=== PATIENT | female | born 1985 | race Two or more races ===

== ENCOUNTER 2025-03-16 06:40 | Inpatient (IN) | payer OTHER ==
[~2025-03-16] VITALS: Ht 162.6 cm; Wt 88.5 kg
[2025-03-16 06:11] VITALS: BP 101/75; O2SAT 97
[2025-03-16] MEDS ORDERED: CHILDREN'S ASPI81 MG PO (06:43)
[2025-03-16] MEDS ORDERED: PRENATA CHEWAB1 EACH PO (06:43)
[2025-03-16] MEDS ORDERED: CHOLINE500 M1 PO (06:44)
[2025-03-16] MEDS ORDERED: RINGERS SOLUTION,LACTATED 1,000 ML IV SCH ×2 (07:00→11:00)
[2025-03-16] MEDS ORDERED: CEFAZOLIN SODIUM 1,000 MG VIAL IV SCH (07:00)
[2025-03-16 07:11] VITALS: BP 109/71
[2025-03-16 07:37] LABS: BASO % 0.4 % (0.1-1.2); EOS # 0.09 (0.04-0.54); EOS % 1.3 % (0.7-7.0); LYMPH # 1.91 (1.18-3.74); LYMPH % 27.1 % (19.3-53.1); MEAN PLATELET VOLUME 11.00 fl (9.4-12.4); MONO # 0.37 (0.24-0.82); MONO % 5.2 % (4.7-12.5); NEUT # 4.61 (1.56-6.13); NEUT % 65.4 % (34.0-71.1); RED CELL DISTRIBUTION WIDTH 12.9 % (11.6-14.4)
[2025-03-16 07:41] LABS: URINE APPEARANCE Cloudy; URINE BILIRRUBIN Negative (NEGATIVE); URINE BLOOD Negative; URINE COLOR Yellow; URINE GLUCOSE Negative (NEGATIVE); URINE KETONE Negative (NEGATIVE); URINE LEUKOCYTE Large; URINE NITRATE Negative; URINE PROTEIN Trace (NEGATIVE); URINE UROBILINOGEN 0.2 E.U./dl
[2025-03-16 07:45] LABS: URINE RBC 9.9 uL (0.0-20.8); URINE WBC 85.3 uL (0.0-23.2)
[2025-03-16 07:53] LABS: URINE CAST 0.43 uL (0.0-1.40); URINE EPITHELIAL CELLS > 201.7 uL (0.0-38.8)
[2025-03-16 07:56] LABS: TYPE CELLS SQUAMOUS
[2025-03-16 08:04] LABS: INR < 0.93
[2025-03-16 08:08] LABS: ALT/SGPT 18.0 U/L (12-78); AST/SGOT 14.0 U/L (15-37); BILIRUBIN TOTAL 0.4 mg/dL (0.3-1.2); BUN CREA RATIO 20.0 (7.0-25.0); CREATININE SERUM 0.41 mg/dL (0.55-1.02); GFR 173.61; GLOBULINA 3.2 G/DL (2.4-3.5); GLUCOSE FASTING 84.0 mg/dL (65-100); OSMOLALITY SERUM 277.0 MOSM/KG (275-295)
[2025-03-16] MEDS ORDERED: MORPHINE SULFATE 4 MG/ML VIAL IV SCH (10:50)
[2025-03-16] MEDS ORDERED: CHLORHEXIDINE GLUCONATE 120 ML BOTTLE TP NR (11:00)
[2025-03-16] MEDS ORDERED: ACETAMINOPHEN WITH CODEINE 1 UDTAB TABLET PO PRN (11:00)
[2025-03-16] MEDS ORDERED: OXYTOCIN 1,000 ML IV SCH (11:00)
[2025-03-16] MEDS ORDERED: ERYTHROMYCIN BASE OPHT 1GM EACH TUBE OP ONE (11:00)
[2025-03-16] MEDS ORDERED: PROMETHAZINE HCL 50 MG/ML AMPUL IV SCH (12:00)
[2025-03-16] MEDS ORDERED: SIMETHICONE 125 MG CAPSULE PO SCH (13:00)
[2025-03-16 13:41] LABS: BASO % 0.3 % (0.1-1.2); EOS # 0.07 (0.04-0.54); EOS % 0.7 % (0.7-7.0); LYMPH # 1.42 (1.18-3.74); LYMPH % 13.8 % (19.3-53.1); MEAN PLATELET VOLUME 10.60 fl (9.4-12.4); MONO # 0.42 (0.24-0.82); MONO % 4.1 % (4.7-12.5); NEUT # 8.32 (1.56-6.13); NEUT % 80.5 % (34.0-71.1); RED CELL DISTRIBUTION WIDTH 12.5 % (11.6-14.4)
[2025-03-16 13:45] VITALS: BP 110/73
[2025-03-16 16:00] VITALS: BP 107/71
[2025-03-16 20:00] VITALS: BP 110/70
[2025-03-17 00:20] VITALS: BP 104/64
[2025-03-17 08:12] VITALS: BP 114/75
[2025-03-17] MEDS ORDERED: NAPROXEN 500 MG TABLET PO SCH (09:00)
[2025-03-17 16:34] VITALS: BP 120/77
[2025-03-18 00:12] VITALS: BP 108/67
[2025-03-18 08:00] VITALS: BP 120/80
[2025-03-18 15:41] VITALS: BP 118/80
[2025-03-18 20:06] VITALS: BP 123/84
[2025-03-19 00:17] VITALS: BP 106/73
[2025-03-19 08:50] VITALS: BP 118/79
[2025-03-19] MEDS ORDERED: NAPROXEN500 MG PO (13:25)
== END 2025-03-19 13:34 | disposition home or self-care (01) | DRG 787 ==
LOC: LDR 06:40 → O/R 06:40 → OB/GYN 11:09
PROVIDERS: ADMIT Obstetrics & Gynecology; ATTEND Obstetrics & Gynecology
PROC: 4A1HXCZ Monitoring of Products of Conception, Cardiac Rate, External Approach (ICD-10-PCS; 2025-03-16)
PROC: 10D00Z1 Extraction of Products of Conception, Low, Open Approach (ICD-10-PCS; principal; 2025-03-16 09:15)
DX: O82 Encounter for cesarean delivery without indication (principal); O70.3 Fourth degree perineal laceration during delivery; O69.81X0 Labor and delivery complicated by cord around neck, without compression, not applicable or unspecified; Z37.0 Single live birth; Z3A.37 37 weeks gestation of pregnancy